=== PATIENT | female | born 1965 | race Caucasian/White ===

== ENCOUNTER 2019-03-21 20:32 | Emergency (ER) | payer MEDICARE ==
[~2019-03-21] VITALS: Ht 172.7 cm; Wt 63.5 kg
[2019-03-21 20:42] VITALS: BP 144/97
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
== END 2019-03-21 21:10 | disposition left against medical advice (07) ==
LOC: ER 20:37
DX: R55 Syncope and collapse (principal); R56.9 Unspecified convulsions; I10 Essential (primary) hypertension; Z88.8 Allergy status to other drugs, medicaments and biological substances